=== PATIENT | male | born 1955 | race Caucasian/White ===

== ENCOUNTER 2021-07-19 02:42 | Emergency (ER) | payer OTHER ==
[2021-07-19 03:16] VITALS: BP 133/79; PULSE 84; TEMP 98.1; BMI 35.4
[2021-07-19] MEDS ORDERED: FLUORESCEIN NA 1 EA STRIP OU ONE (03:34)
[2021-07-19] MEDS ORDERED: TETRACAINE 0.5% OPHTH SOLN 2 ML BOTTLE OU ONE (03:34)
[2021-07-19] MEDS ORDERED: ACETAMINOPHEN 500 MG TABLET (FP) PO ONE (03:35)
[2021-07-19] MEDS ORDERED: TETRACAINE 0.5% OPHTH SOLN 2 ML BOTTLE ONE (03:43)
[2021-07-19] MEDS ORDERED: FLUORESCEIN NA 1 EA STRIP ONE (03:43)
[2021-07-19] MEDS ORDERED: ACETAMINOPHEN 500 MG TABLET (FP) ONE (03:45)
== END 2021-07-19 05:21 | disposition home or self-care (01) ==
LOC: JER 02:42
DX: S02.31XA Fracture of orbital floor, right side, initial encounter for closed fracture (principal); Y04.0XXA Assault by unarmed brawl or fight, initial encounter
CPT/HCPCS: 70486-TC; 71046-TC-FY; 93005; 93010; 99285-25; C9803-CS; U0003; U0005